=== PATIENT | female | born 1965 | race African-American/Black ===

== ENCOUNTER 2017-08-25 17:49 | Emergency (ER) | payer SELFPAY ==
[2017-08-25 17:51] VITALS: BP 153/79; PULSE 73; RESP 18; TEMP 98.9; O2SAT 98
[2017-08-25] MEDS ORDERED: SILVER SULFADIAZINE 1% CR 50 GM JAR TOPICAL ONE (18:15)
[2017-08-25] MEDS ORDERED: CEPH-460 PO ×2 (18:18→18:24)
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
== END 2017-08-25 18:32 | disposition home or self-care (01) ==
LOC: NEPK 17:49
DX: T24.212A Burn of second degree of left thigh, initial encounter (principal); T31.0 Burns involving less than 10% of body surface; C55 Malignant neoplasm of uterus, part unspecified; F41.9 Anxiety disorder, unspecified; E05.90 Thyrotoxicosis, unspecified without thyrotoxic crisis or storm; X10.0XXA Contact with hot drinks, initial encounter
CPT/HCPCS: 16020

== ENCOUNTER 2017-09-18 00:03 | Emergency (ER) | payer OTHER ==
[~2017-09-18] VITALS: Ht 157.5 cm; Wt 65.0 kg
[~2017-09-18 00:03] MED LIST: CEPH-460 PO
[2017-09-18 00:04] VITALS: BP 123/75; PULSE 58; RESP 16; TEMP 98; O2SAT 99
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
[2017-09-18] MEDS ORDERED: PERI0.126 SWISH-SPIT (01:14)
[2017-09-18] MEDS ORDERED: TRAM50 PO (01:14)
[2017-09-18] MEDS ORDERED: IBUP-232 PO (01:14)
[2017-09-18] MEDS ORDERED: IBUPROFEN 800 MG TAB PO ONE (01:15)
== END 2017-09-18 02:03 | disposition home or self-care (01) ==
LOC: NEPD 00:03
DX: K02.9 Dental caries, unspecified (principal); D64.9 Anemia, unspecified; F41.9 Anxiety disorder, unspecified; E05.90 Thyrotoxicosis, unspecified without thyrotoxic crisis or storm; Z72.0 Tobacco use
CPT/HCPCS: 99283